=== PATIENT | female | born 1985 | race Caucasian/White ===

== ENCOUNTER 2021-04-06 15:21 | Emergency (ER) | payer OTHER ==
[2021-04-06] MEDS ORDERED: CEPHALEXIN500 M1 PO (18:03)
== END 2021-04-06 18:25 | disposition home or self-care (01) ==
LOC: ER1 15:21
DX: N64.4 Mastodynia (principal); F19.90 Other psychoactive substance use, unspecified, uncomplicated; R30.0 Dysuria; F17.200 Nicotine dependence, unspecified, uncomplicated; Z88.6 Allergy status to analgesic agent; Z88.2 Allergy status to sulfonamides; Z88.8 Allergy status to other drugs, medicaments and biological substances
CPT/HCPCS: 71045; 81001; 84703; 87086; 99283

== ENCOUNTER 2021-04-16 20:11 | Emergency (ER) | payer OTHER ==
[~2021-04-16 20:11] MED LIST: CEPHALEXIN500 M1 PO
[2021-04-17] MEDS ORDERED: OMNICEF 300 MG300 MG PO (04:09)
[2021-04-17] MEDS ORDERED: ZYRTEC10 MG PO (04:09)
[2021-04-17] MEDS ORDERED: MEDROL DOSEPAK 24 MG PO (04:09)
[2021-04-17] MEDS ORDERED: ZOFRAN4 MG PO (04:09)
== END 2021-04-17 04:38 | disposition home or self-care (01) ==
LOC: ER1 20:11
DX: R51.9 Headache, unspecified (principal); R30.0 Dysuria; R09.81 Nasal congestion; F17.210 Nicotine dependence, cigarettes, uncomplicated; Z20.822 Contact with and (suspected) exposure to COVID-19; Z88.2 Allergy status to sulfonamides; Z88.8 Allergy status to other drugs, medicaments and biological substances
CPT/HCPCS: 80307; 81001; 84703; 96372; 99284; J1885; U0002